=== PATIENT | female | born 1990 | race Caucasian/White ===

== ENCOUNTER 2020-09-03 14:05 | Emergency (ER) | payer SELFPAY ==
[2020-09-03 14:13] VITALS: BP 154/99
[2020-09-03 14:55] LABS: Hemoglobin 12.9 gm/dl (10.1-14.3); Mean Corpuscular HGB Conc 34 % (30-34); Mean Corpuscular Volume 89 fl (79-97); Platelet Count 266 K/mm3 (140-440); Red Blood Count 4.27 M/mm3 (3.65-5.03); Red Cell Distribution Width 12.8 % (13.2-15.2)
[2020-09-03 15:10] LABS: BUN/Creatinine Ratio 20; Blood Urea Nitrogen 8 mg/dL (7-17); Calcium 8.8 mg/dL (8.4-10.2); Hemolysis Index 3
--- NOTE | 2020-09-03 17:19 | Emergency Department Report ---
ED Female HPI - General Chief complaint: Vaginal Bleeding Stated complaint: 7WKS PREG/VAG BLEED Time Seen by Provider: 09/03/20 17:10 Source: patient Mode of arrival: Ambulatory Limitations: No Limitations - History of Present Illness Initial comments: Chief complaint: Pelvic pain vaginal bleeding HPI: This 30-year-old female is approximately 7 weeks . Estimated due date is in March. She was seen by her primary dietitian teacher at [facility] recently. She states that "they did not see anything". She has mild pelvic pain. She has small amount of bleeding. MD Complaint: vaginal bleeding -: Gradual, days(s) (1) Severity: mild Severity scale (0 -10): 3 Quality: cramping Consistency: constant Improves with: none Worsens with: none Are you Now?: Yes Associated Symptoms: vaginal bleeding - Related Data Home Medications Medication Instructions Recorded Confirmed Last Taken Ibuprofen [Motrin] 600 mg PO Q6HR PRN 12/23/13 12/23/13 Unknown Misoprostol [Cytotec] 100 mcg PO Q6HR 12/23/13 12/23/13 12/23/13 Nitrofurantoin Macrocrysta(Nf) 100 mg PO BID 12/23/13 12/23/13 12/23/13 [Macrodantin] Previous Rx's Medication Instructions Recorded Last Taken Type DOXYCYCLINE Hyclate [Vibramycin 100 mg PO BID #14 capsule 12/25/13 Unknown Rx CAP] Ferrous Sulfate [Feosol 325 MG tab] 325 mg PO BID #60 tablet 12/25/13 Unknown Rx Ibuprofen [Motrin 600 MG tab] 800 mg PO Q8H PRN #30 tablet 12/25/13 Unknown Rx Methylergonovine [Methergine] 0.2 mg PO Q8HR #3 tablet 12/25/13 Unknown Rx Vit-Fe Fumar-FA [ 1 each PO QDAY #30 tablet 12/25/13 Unknown Rx Vitamin] Allergies Allergy/AdvReac Type Severity Reaction Status Date / Time No Known Allergies Allergy Verified 12/23/13 20:55 ED Review of Systems ROS: Stated complaint: 7WKS PREG/VAG BLEED Other details as noted in HPI Comment: All other systems reviewed and negative Constitutional: denies: fever, malaise Respiratory: denies: cough, shortness of breath Gastrointestinal: abdominal pain. denies: nausea, vomiting ED Past Medical Hx - Past Medical History Previous Medical History?: Yes Hx Congestive Heart Failure: No Hx Diabetes: No Hx Asthma: No Hx COPD: No - Surgical History Past Surgical History?: No - Social History Smoking Status: Never Smoker - Medications Home Medications: Home Medications Medication Instructions Recorded Confirmed Last Taken Type Ibuprofen [Motrin] 600 mg PO Q6HR PRN 12/23/13 12/23/13 Unknown History Misoprostol [Cytotec] 100 mcg PO Q6HR 12/23/13 12/23/13 12/23/13 History Nitrofurantoin Macrocrysta(Nf) 100 mg PO BID 12/23/13 12/23/13 12/23/13 History [Macrodantin] DOXYCYCLINE Hyclate [Vibramycin 100 mg PO BID #14 capsule 12/25/13 Unknown Rx CAP] Ferrous Sulfate [Feosol 325 MG tab] 325 mg PO BID #60 tablet 12/25/13 Unknown Rx Ibuprofen [Motrin 600 MG tab] 800 mg PO Q8H PRN #30 tablet 12/25/13 Unknown Rx Methylergonovine [Methergine] 0.2 mg PO Q8HR #3 tablet 12/25/13 Unknown Rx Vit-Fe Fumar-FA [ 1 each PO QDAY #30 tablet 12/25/13 Unknown Rx Vitamin] ED Physical Exam - General Limitations: No Limitations General appearance: alert, in no apparent distress - Head Head exam: Present: atraumatic, normocephalic - Eye Eye exam: Present: normal appearance - ENT ENT exam: Present: mucous membranes moist - Neck Neck exam: Present: normal inspection, full ROM - Respiratory Respiratory exam: Present: normal lung sounds bilaterally. Absent: respiratory distress, wheezes, rales, rhonchi - Cardiovascular Cardiovascular Exam: Present: regular rate, normal rhythm, normal heart sounds. Absent: systolic murmur, diastolic murmur, rubs, gallop - GI/Abdominal GI/Abdominal exam: Present: soft, normal bowel sounds. Absent: distended, tenderness, guarding, rebound - Extremities Exam Extremities exam: Present: normal inspection - Neurological Exam Neurological exam: Present: alert, oriented X3 - Psychiatric Psychiatric exam: Present: normal affect, normal mood - Skin Skin exam: Present: warm, dry, intact, normal color. Absent: rash ED Course Vital Signs 09/03/20 14:09 Temperature 98.7 F Pulse Rate 91 H Respiratory 14 Rate Blood Pressure 154/99 O2 Sat by Pulse 98 Oximetry ED Medical Decision Making - Lab Data Result diagrams: 09/03/20 14:30 09/03/20 14:30 Laboratory Results - last 24 hr 09/03/20 09/03/20 09/03/20 14:30 14:30 14:30 WBC 7.1 RBC 4.27 Hgb 12.9 Hct 38.0 MCV 89 MCH 30 MCHC 34 RDW 12.8 L Plt Count 266 Sodium 135 L Potassium 3.3 L Chloride 101.5 Carbon Dioxide 22 Anion Gap 15 BUN 8 Creatinine 0.4 L Estimated GFR > 60 BUN/Creatinine Ratio 20 Glucose 104 H Calcium 8.8 HCG, Quant 770.7 H Blood Type Ord Rhogam Gestat Weeks 09/03/20 14:30 WBC RBC Hgb Hct MCV MCH MCHC RDW Plt Count Sodium Potassium Chloride Carbon Dioxide Anion Gap BUN Creatinine Estimated GFR BUN/Creatinine Ratio Glucose Calcium HCG, Quant Blood Type O POSITIVE Ord Rhogam Gestat Weeks Rh pos - Radiology Data Radiology results: report reviewed US OB transvaginal, US OB <= 14 wk fetus add gest INDICATION / CLINICAL INFORMATION: pelvic pain vaginal bleeding. TECHNIQUE: Transabdominal. Color flow was performed. COMPARISON: None available. FINDINGS: UTERUS: Appears within normal limits. GESTATIONAL SAC: Well-defined oval shape and intrauterine in location. YOLK SAC: No significant abnormality. EMBRYO/FETUS: - [place]-Rump Length = 3.7 mm = 6 weeks 0 days. - Heart Rate, beats per minute (if present) = no heart rate is seen on this examination. ADNEXA: No significant abnormality. FREE FLUID: None. ADDITIONAL FINDINGS: None. IMPRESSION: 1. Intrauterine gestational sac and pole with estimated sonographic age of 6 weeks 0 days. No heart tones on this examination which could be due to early US OB transvaginal, US OB <= 14 wk fetus add gest INDICATION / CLINICAL INFORMATION: pelvic pain vaginal bleeding. TECHNIQUE: Transabdominal. Color flow was performed. COMPARISON: None available. FINDINGS: UTERUS: Appears within normal limits. GESTATIONAL SAC: Well-defined oval shape and intrauterine in location. YOLK SAC: No significant abnormality. EMBRYO/FETUS: - [place]-Rump Length = 3.7 mm = 6 weeks 0 days. - Heart Rate, beats per minute (if present) = no heart rate is seen on this examination. ADNEXA: No significant abnormality. FREE FLUID: None. ADDITIONAL FINDINGS: None. IMPRESSION: 1. Intrauterine gestational sac and pole with estimated sonographic age of 6 weeks 0 days. No heart tones on this examination which could be due to early . - Medical Decision Making This is a 30-year-old female who presents with pelvic pain vaginal bleeding in her first trimester . Differential diagnosis includes threatened miscarriage, early . Patient understands to follow-up with her primary dietitian teacher. I have reviewed labs. hCG is low for gestational age. Gestational sac and pole is present. Secondly patient is O+. Critical care attestation.: If time is entered above; I have spent that time in minutes in the direct care of this critically ill patient, excluding procedure time. ED Disposition Clinical Impression: Threatened miscarriage Disposition: DC-01 TO HOME OR SELFCARE Is pt being admited?: No Does the pt Need Aspirin: No Condition: Stable Instructions: Threatened Miscarriage Referrals: PRIMARY CARE, [Primary Care Provider] - 3-5 Days Print Language: CENTRAL AFRICAN
--- NOTE | 2020-09-03 19:06 | Ultrasound Report ---
US OB transvaginal, US OB <= 14 wk fetus add gest INDICATION / CLINICAL INFORMATION: pelvic pain vaginal bleeding. TECHNIQUE: Transabdominal. Color flow was performed. COMPARISON: None available. FINDINGS: UTERUS: Appears within normal limits. GESTATIONAL SAC: Well-defined oval shape and intrauterine in location. YOLK SAC: No significant abnormality. EMBRYO/FETUS: - [place]-Rump Length = 3.7 mm = 6 weeks 0 days. - Heart Rate, beats per minute (if present) = no heart rate is seen on this examination. ADNEXA: No significant abnormality. FREE FLUID: None. ADDITIONAL FINDINGS: None. IMPRESSION: 1. Intrauterine gestational sac and pole with estimated sonographic age of 6 weeks 0 days. No heart tones on this examination which could be due to early . Signer Name: Don Castillo MD Signed: 09/03/2020 7:02 PM Workstation Name: [id number]
--- NOTE | 2020-09-03 19:06 | Ultrasound Report ---
US OB transvaginal, US OB <= 14 wk fetus add gest INDICATION / CLINICAL INFORMATION: pelvic pain vaginal bleeding. TECHNIQUE: Transabdominal. Color flow was performed. COMPARISON: None available. FINDINGS: UTERUS: Appears within normal limits. GESTATIONAL SAC: Well-defined oval shape and intrauterine in location. YOLK SAC: No significant abnormality. EMBRYO/FETUS: - [place]-Rump Length = 3.7 mm = 6 weeks 0 days. - Heart Rate, beats per minute (if present) = no heart rate is seen on this examination. ADNEXA: No significant abnormality. FREE FLUID: None. ADDITIONAL FINDINGS: None. IMPRESSION: 1. Intrauterine gestational sac and pole with estimated sonographic age of 6 weeks 0 days. No heart tones on this examination which could be due to early . Signer Name: Don Castillo MD Signed: 09/03/2020 7:02 PM Workstation Name: [id number]
[2020-09-03 19:22] LABS: Bacteria,Urine 1+ /HPF (Negative); Bilirubin,Urine NEG (Negative); Blood,Urine MOD (Negative); Color,Urine Straw (Yellow); Protein,Urine <15 mg/dL mg/dL (Negative); Urobilinogen,Urine < 2.0 mg/dL (<2.0)
== END 2020-09-03 20:26 | disposition home or self-care (01) ==
LOC: ED 14:05
DX: O20.0 Threatened abortion (principal); Z3A.01 Less than 8 weeks gestation of pregnancy; Z79.899 Other long term (current) drug therapy
CPT/HCPCS: 36415; 76801; 76802; 76817; 80048; 81001; 84702; 85027; 86900; 86901